=== PATIENT | male | born 1945 | race Two or more races ===

== ENCOUNTER 2020-05-19 10:46 | Emergency (ER) | payer BC, MEDICARE ==
[~2020-05-19] VITALS: Ht 167.6 cm; Wt 65.6 kg
--- NOTE | 2020-05-19 11:09 | NUR ---
PT HERE FOR C/O HAVING FEVER AFTER COLONOSCOPY AND UPPER ENDOSCOPY ON 05/07, DENIES CURRENT FEVER, STATES HE HAS DECREASE APPETITE SINCE AND WOULD LIKE TO KNOW IF HE HAS A "BLOOD INFECTION". PT PLACED ON VITALS MONITORS, CALL LIGHT PLACED WITHIN REACH.
[2020-05-19] MEDS ORDERED: METF500T17 PO (11:14)
--- NOTE | 2020-05-19 11:50 | NUR ---
ECG OBTAINED BY [facility] DRAWN AND SENT FOR ANALYSIS AT 11:57 CXR AT BEDSIDE AT 12;01P
[2020-05-19 12:15] LABS: BASOPHILS % (AUTO) 0 % (0-1); EOSINOPHILS % (AUTO) 1 % (1-7); LYMPHOCYTES % (AUTO) 17 % (22-44); MEAN CORPUSCULAR HEMOGLOBIN 30.6 pg (27.5-34.5); MEAN PLATELET VOLUME 6.7 fL (7.4-10.4); MONOCYTES % (AUTO) 11 % (2-9); NEUTROPHILS % (AUTO) 71 % (42-75); PLATELET COUNT 150 x10^3/uL (130-400); RED BLOOD COUNT 5.03 x10^6/uL (4.38-5.82); RED CELL DISTRIBUTION WIDTH 13.1 % (9.4-14.8)
[2020-05-19 12:19] LABS: MD NO
[2020-05-19 12:23] LABS: ALBUMIN 3.4 g/dL (3.4-5.0); ANION GAP 7 mmol/L (5-15); CALCIUM 8.8 mg/dL (8.5-10.1); CHLORIDE 104 mmol/L (98-107); CREATININE 0.86 mg/dL (0.7-1.3)
[2020-05-19 12:27] LABS: TROPONIN I < 0.015 ng/mL (0.000-0.045)
--- NOTE | 2020-05-19 12:50 | NUR ---
PIV PLACED-TO CT SCAN
[2020-05-19] MEDS ORDERED: OMNIPAQUE 350 MG/ML, 75ML BOTTLE ONE (13:13)
[2020-05-19 13:31] VITALS: BP 131/66
== END 2020-05-19 14:35 | disposition home or self-care (01) ==
LOC: ED 14:25
DX: R53.1 Weakness (principal); R50.9 Fever, unspecified; R05 Cough; R94.31 Abnormal electrocardiogram [ECG] [EKG]; R07.89 Other chest pain; I10 Essential (primary) hypertension; E11.9 Type 2 diabetes mellitus without complications
CPT/HCPCS: 36415; 71045; 71260; 80048; 82040; 84484; 85025; 93005; 99285; Q9967